=== PATIENT | male | born 1955 | race Caucasian/White ===

== ENCOUNTER 2025-03-19 12:15 | Observation (INO) ==
--- NOTE | 2025-03-19 12:29 | ED Physician Documentation ---
History of Present Illness Stated complaint Stated Complaint: BACK PX Chief complaint Chief Complaint: Abd Pain Additonal information Additional information: 69-year-old male with A-fib anticoagulated on Eliquis presents to emergency department via private vehicle after sustaining a mechanical ground-level fall. Patient states that on evening he lost his footing and fell onto his dog cage in his bedroom he has got right flank pain with bruising and states that the last couple nights that he has been having a hard time sleeping because of the severity of the pain. He is not having any hematuria no hematochezia no nausea or vomiting he denies hitting his head no loss of consciousness. Meds/Allgy Allergies Allergies Allergy/AdvReac Type Severity Reaction Status Date / Time No Known Drug Allergies Allergy Verified 03/19/25 12:22 PFSH Active Problems All Active Problems (Updated 03/19/25 @ 17:19 by Joann Bo DNP) Chronic anticoagulation (Acute) Chest wall hematoma (Acute) Blunt trauma to chest (Acute) Active bleeding (Acute) Acute blood loss anemia (Acute) Medical History Medical History (Updated 03/19/25 @ 17:19 by Joann Bo DNP) Atrial fibrillation Social History Social History Smoking Status: Smoker current status unk Do you feel safe in your home environment?: Yes History of physical, verbal, emotional, or financial abuse?: No Exam Exam Vital Signs: Vital Signs x48h Temp Pulse Resp BP Pulse Ox 03/19/25 16:19 77 18 156/79 H 97 03/19/25 12:20 36.5 C 91 18 111/84 99 Constitutional normal general appearance, no apparent distress, average body habitus, no limitations and alert [facility] normocephalic Eyes PERRL Chest inspection of chest normal Respiratory breath sounds equal bilaterally and normal respiratory effort Cardiovascular normal heart rate noted Gastrointestinal abdomen normal to inspection and abdomen soft to palpation Back/Pelvis right flank echymosis Extremities normal to inspection, normal to palpation and no tenderness Skin right flank echymosis measuring about 20cm in diameter Results Vitals Vitals: Vital Signs - 24 hr 03/19/25 12:20 03/19/25 12:42 03/19/25 12:43 Temperature 36.5 C Temperature Source Temporal Artery Scan Pulse Rate 91 Respiratory Rate 18 Blood Pressure 111/84 O2 Saturation 99 O2 Source Room air Pain Intensity 8 8 8 03/19/25 16:19 03/19/25 16:25 03/19/25 16:43 Temperature Temperature Source Pulse Rate 77 Respiratory Rate 18 Blood Pressure 156/79 H O2 Saturation 97 O2 Source Room air Pain Intensity 7 8 5 Oxygen O2 Source Room air Labs Labs: Laboratory Tests 03/19/25 03/19/25 12:59 16:11 WBC 9.5 RBC 3.39 L Hgb 10.3 L Hct 31.0 L MCV 91.4 MCH 30.4 MCHC 33.2 RDW 13.5 Plt Count 275 MPV 10.3 Neut # (Auto) 6.9 H Lymph # (Auto) 1.4 L Harmon # (Auto) 0.9 Eos # (Auto) 0.2 Baso # (Auto) 0.1 Absolute Nucleated RBC 0.00 Nucleated RBC % 0.0 PT 15.6 H INR 1.4 H Sodium 135 Potassium 4.0 Chloride 100 L Carbon Dioxide 28 Anion Gap 7.0 BUN 20 Creatinine 0.7 Estimated GFR (MDRD) 111 Glucose 215 H Calcium 9.3 Total Bilirubin 0.7 AST 11 ALT 12 Alkaline Phosphatase 69 Total Protein 6.8 Albumin 4.1 Globulin 2.7 Albumin/Globulin Ratio 1.5 Lipase 19 Rads (name of study) CT abdomen pelvis with contrast: Relevant Findings:: Final report received and EMP independent interpretation of test Interpretation: IMPRESSION: 1. Findings most suggestive of significant superficial as well as intramuscular hemorrhage in the right lower posterior chest wall extending in the right flank. 2. There are also signs of active intramuscular bleeding in the right lower posterior chest wall. This could be further assessed with follow-up multiphasic CTA of the chest. 3. No definite acute rib fracture. No acute intra-abdominal abnormality. CT angio chest with contrast: Relevant Findings:: Final report received and EMP independent interpretation of test Interpretation: IMPRESSION: Active extravasation of the right 10th intercostal artery with associated intramuscular hematoma. PD Medical Decision Making ED course Complexity details: reviewed results, d/w patient and d/w telecom sales consultant ([facility] Dr. Mejía) ED course: 69-year-old male presents to emergency department for right flank pain with bruising after mechanical ground-level fall that happened 2 days ago After tripping and falling on his dog crate. CT abdomen pelvis was complete for further evaluation of his right flank pain this revealed significant superficial and intramuscular hemorrhage into the right lower posterior chest wall and extending into the flank. Also signs of active intramuscular bleeding in the right lower posterior chest wall recommended to do a CTA of the chest CTA of the chest was complete and revealed active extravasation of the right 10th intercostal artery with associated intramuscular hematoma without a right 10th rib fracture. I spoke with Dr. Steele about these findings and he suggested reaching out to [facility] trauma team for consult and if they were comfortable keeping him here for observation. Reach out to [facility] and spoke with Dr. Mejía on the [facility] trauma team who reviewed the imaging himself he said that he could not significantly appreciate this extravasation but did feel comfortable with keeping patient here for observation overnight and repeating a chest x-ray and labs in the morning. Patient is anticoagulated on Eliquis I did suggest the possibility of reversing anticoagulation with Kcentra or FFP and Dr. Mejía did not feel that this was necessary at this point in time especially given the fact that his hemoglobin hematocrit are stable this happened 3 days ago. He hemoglobin is 10.3 and hematocrit is 31.0. PT is 15.6 and INR is 1.4 After reviewing the [facility] consult information to Dr. Steele he is agreeable to keep patient under surgical services for repeat chest x-ray and lab monitoring in the hospital. Patient is agreeable to stay. He was given oxycodone originally for his pain but pain did seem to return so we gave him some IV Dilaudid and he said this significantly alleviated his pain to the point where if like he could actually get some rest for the first time. Discharge Plan Discharge Patient Disposition: [facility] DC/Xfer Condition: Good Clinical Impression: Active bleeding, Blunt trauma to chest, Chronic anticoagulation, Chest wall hematoma
[2025-03-19] MEDS: oxyCODONE 5 MG TABLET PO STA (12:42)
[2025-03-19] MEDS: ACETAMINOPHEN 325 MG TABLET PO STA (12:43)
[2025-03-19 13:07] LABS: HCT - HEMATOCRIT 31.0 % (42.0-52.0); HGB - HEMOGLOBIN 10.3 g/dL (14.0-18.0); MEAN PLATELET VOLUME 10.3 fL (7.4-11.4); NRBC ABSOLUTE COUNT (AUTO) 0.00 x10^3/uL; NUCLEATED RED BLOOD CELLS AUTO 0.0 /100WBC; PLT - PLATELET COUNT 275 10^3/uL (130-450); RED CELL DISTRIBUTION WIDTH 13.5 % (12.0-15.0)
[2025-03-19 13:25] LABS: ALT ALANINE AMINOTRANSFERASE 12.0 IU/L (10-60); AST ASPARTATE AMINOTRANSFERASE 11.0 IU/L (10-42); BUN - BLOOD UREA NITROGEN 20.0 mg/dL (6-20); CARBON DIOXIDE - CO2 28.0 mmol/L (21-32); CREATININE 0.7 mg/dL (0.6-1.3); GFR - MDRD 111.0 (>89)
--- NOTE | 2025-03-19 14:12 | CT Report ---
EXAM: CT Abdomen/Pelvis W DATE: 03/19/2025 1:30 PM PDT INDICATION: 69 years Male with right flank pain, right rib pain, fall on object TECHNIQUE: Using MDCT technique, axial images were obtained through the abdomen and pelvis, from the bases of the lungs through the pubic symphysis, following the intravenous administration of contrast. Sagittal and coronal MPR reconstructions were performed. Scan was performed in compliance with NEMA XR 29-213 Dose Limiting Standard. In accordance with CT protocol optimization, one or more of the following dose reduction techniques were utilized for this exam: automated exposure control, adjustment of mA and/or KV based on patient size, or use of iterative reconstructive technique. PROTOCOL: Routine LIMITATION: None. CONTRAST: 80 cc Omnipaque 300 COMPARISON: None available. FINDINGS: Lung bases and visualized mediastinum: No significant focal lesion seen. Liver: No significant focal lesion seen. Spleen: No significant focal lesion seen. Pancreas: No significant focal lesion seen. Gallbladder and bile ducts: No biliary dilatation or significant focal lesion seen. Adrenal glands: No significant focal lesion seen. Kidneys and ureters: No calculi, hydronephrosis, or suspicious focal lesions are seen. GI tract, mesentery, and peritoneum: No significant lesion seen. Upper abdomen and retroperitoneal spaces: No significant adenopathy or other mass seen. Vascular structures: The abdominal aorta, major visceral branches and iliac arteries are normal in caliber. Urinary bladder: No significant focal lesion seen. Reproductive organs: The prostate and seminal vesicles are unremarkable. Inguinal regions and abdominal wall: There is probable mesh in the anterior abdominal wall. No hernia seen. There is extensive superficial fat stranding as well as asymmetric thickening of the muscular structures in the right lower posterior chest wall extending into the right flank. Linear areas of contrast density seen in the right lower chest muscular structures. Osseous structures: No significant focal lesion seen. IMPRESSION: 1. Findings most suggestive of significant superficial as well as intramuscular hemorrhage in the right lower posterior chest wall extending in the right flank. 2. There are also signs of active intramuscular bleeding in the right lower posterior chest wall. This could be further assessed with follow-up multiphasic CTA of the chest. 3. No definite acute rib fracture. No acute intra-abdominal abnormality. Reviewed by: Adalid Douglas MD on 03/19/2025 2:10 PM PDT Approved by: Adalid Douglas MD on 03/19/2025 2:10 PM PDT Station ID: [id number]
--- NOTE | 2025-03-19 15:42 | CT Report ---
PROCEDURE: CT Angio Chest INDICATIONS: right flank pain with active bleeding CONTRAST: OMNI 300 100mL TECHNIQUE: Before and after the administration of intravenous contrast, 2 mm axial images were acquired from the pulmonary apices to the posterior costophrenic angles during the arterial phase. In addition, 1 mm lung kernel and 5 mm soft tissue kernel reconstructions were performed. 3-dimensional coronal oblique maximum intensity projection (MIP) reformats, 8 mm axial MIP, and 5 mm coronal and sagittal MPR reformats were then performed through the thorax. For radiation dose reduction, the following was used: automated exposure control, adjustment of mA and/or kV according to patient size. COMPARISON: None. FINDINGS: Image quality: Excellent. Large vessels: No filling defects within the opacified pulmonary arteries, accounting for motion and contrast timing. No evidence of acute aortic syndrome or aortic aneurysm. Lungs and pleura: No consolidation. No pleural effusions. No pneumothorax. No suspicious pulmonary nodules which require follow up. Mediastinum: Heart size is normal. No pericardial effusion. No large vessel abnormality. No mediastinal adenopathy by size criteria. Chest wall and lower neck: Again seen is a right posterior chest wall intramuscular hematoma which demonstrates focal areas of active extravasation seen best on the portal venous phase images but also identifiable on the arterial phase images. These are likely arising from the right 10th intercostal artery. No other area of active extravasation is identified. Thyroid is unremarkable. No axillary or supraclavicular adenopathy by size. Bones: No aggressive osseous abnormality. No acute rib fracture. Upper Abdomen: Unremarkable. IMPRESSION: Active extravasation of the right 10th intercostal artery with associated intramuscular hematoma. Reviewed by: Marissa Pendleton MD on 03/19/2025 2:41 PM AKDT Approved by: Marissa Pendleton MD on 03/19/2025 2:41 PM AKDT Station ID: [id number]
[2025-03-19 16:20] LABS: INR 1.4 (0.8-1.2); PT - PROTHROMBIN TIME 15.6 secs (9.9-12.6)
[2025-03-19] MEDS: HYDROmorphone 0.5 MG/0.5 ML SYRINGE IVP STA (16:25)
--- NOTE | 2025-03-19 17:27 | HISTORY & PHYSICAL EXAMINATION ---
Chief Complaint Chief Complaint Chief Complaint: Right side chest swelling and discoloration History of Present Illness Admitted From Admitted From:: ED History Obtained From History obtained from: Patient Exam Limitations: None History of Present Illness HPI Comment/Other: Devon is a 69 year old male who tripped while walking in the dark and fell onto a small animal pet cage striking his right posterolateral chest wall 3 days ago. He had minimal discomfort and no SOB but developed bruising in the back over the next 24 hours. This persisted and extended over the next several days and when he showed his friends, they advised that he be evaluated in the ED. He denies chest wall discomfort with breathing, light-headedness, nausea, or vomiting. Devon takes Eliquis daily for atrial fibrillation. In the ED he was found to be hemodynamically stable with a Hgb of 10.3. CT of the chest and abdomen were normal except for evidence of a right postero-lateral chest wall soft tissue hematoma. There is no evidence of a rib fracture but there is a suggestion of an active blush from the artery associated with the 10th rib. The ED contacted the trauma staff at [facility] to determine if he was a candidate for IR embolization. They were not certain that there was strong enough image evidence of an active bleed to warrant transfer therefore I was contacted and recommended that he be admitted to this facility to monitor his H&H, stop his DOAC, and offer blood transfusion if needed. Meds/Allgy Home Medications Ambulatory Orders Medication Instructions Recorded Confirmed albuterol sulfate 90 mcg/actuation 2 inh inhalation Q8 H PRN shortness 03/19/25 03/19/25 aerosol inhaler of breath or wheezing allopurinol 100 mg tablet 200 mg PO DAILY Gout 5 03/19/25 amlodipine 10 mg tablet 10 mg PO DAILY 03/19/2502/20 apixaban 5 mg tablet (Eliquis) 5 mg PO BID 03/19/25 empagliflozin 10 mg tablet 10 mg PO DAILY 03/19/25 (Jardiance) furosemide 20 mg tablet 10 mg PO DAILY 03/19/2502/20 metformin 500 mg tablet,extended 1,000 mg PO BID 03/1903/19/25 release 24 hr metoprolol succinate 100 mg 100 mg PO DAILY 03/19/25 0 03/19/25 tablet,extended release 24 hr rosuvastatin 5 mg tablet 5 mg PO HS 03/19/25 03/19/25 Allergies Allergies Allergy/AdvReac Type Severity Reaction Status Date / Time No Known Drug Allergies Allergy Verified 03/19/25 12:22 PFSH Active Problems All Active Problems Chronic anticoagulation (Acute) Chest wall hematoma (Acute) Blunt trauma to chest (Acute) Active bleeding (Acute) Acute blood loss anemia (Acute) Medical History Medical History Diabetes Atrial fibrillation Social History Social History Smoking Status: Smoker current status unk Do you feel safe in your home environment?: Yes History of physical, verbal, emotional, or financial abuse?: No POLST Patient has POLST: No Review of Systems Mild right side posterior chest discomfort with palpation associated with bruising. Denies SOB, anterior chest pain, abdominal pain. Prior Level of Functionality: Independent Exam Exam Vital Signs: Vital Signs x48h Temp Pulse Resp BP BP Pulse Ox 03/19/25 18:11 36.6 C 16 130/79 99 03/19/25 16:19 77 18 156/79 H 97 03/19/25 12:20 36.5 C 91 18 111/84 99 Constitutional normal general appearance, no apparent distress and average body habitus HENMT normocephalic, head/scalp atraumatic, hearing grossly normal bilaterally, oral mucous membranes normal and oropharynx normal Eyes PERRL, EOMs intact bilaterally, conjunctivae normal and no scleral icterus Neck/C-Spine visual inspection normal, trachea midline and cervical spine nontender Lymph no lymphadenopathy noted Chest Ecchymosis of the right posterio-lateral chest wall. No rib tenderness. No pulsatile mass. No skin lacerations or punctures. Respiratory breath sounds equal bilaterally, normal respiratory effort, clear to auscultation bilaterally and no wheezes Cardiovascular normal heart rate noted, no murmur and peripheral pulses 2+ throughout Gastrointestinal abdomen soft to palpation, nontender to palpation, nondistended and normoactive bowel sounds Multiple surgical scars Back/Pelvis spine normal to inspection Extremities normal to inspection Neurology no movement abnormality noted and no focal motor deficit noted Psychiatry mental status grossly normal, thought process normal, cooperative and affect normal Skin skin color normal and skin turgor normal Image Body (4 view): 2 1. Ecchymosis Conclusion/Plan Problem List (1) Blunt trauma to chest: (2) Active bleeding: (3) Acute blood loss anemia: (4) Chest wall hematoma: (5) Chronic anticoagulation: Plan 1) Admit to observation status 2) Stop Eliquis 3) Sliding scale insulin coverage 4) Serial H&H 5) Transfuse as indicated Lab Results 03/19/25 17:35 03/19/25 12:59
[2025-03-19] MEDS: LACTATED RINGERS 1,000 ML IV SCH (17:29)
[2025-03-19 17:39] LABS: HCT - HEMATOCRIT 28.1 % (42.0-52.0); HGB - HEMOGLOBIN 9.3 g/dL (14.0-18.0)
[2025-03-19] MEDS ORDERED: SODIUM CHLORIDE FLUSH 0.9% 10 ML SYRINGE IVP PRN (18:01)
[2025-03-19] MEDS ORDERED: ALBUTEROL NEB 2.5 MG/3 ML INH PRN (19:10)
[2025-03-19] MEDS: HYDROmorphone 1 MG/ML CARPUJECT IVP PRN (19:25)
[2025-03-19] MEDS: ACETAMINOPHEN 325 MG TABLET PO SCH (19:26)
[2025-03-19] MEDS: ATORVASTATIN 10 MG TABLET PO SCH (22:50)
[2025-03-19] MEDS: INSULIN LISPRO 300 UNIT/3 ML PEN SUBQ SCH (22:51)
[2025-03-20] MEDS: SODIUM CHLORIDE FLUSH 0.9% 10 ML SYRINGE IVP SCH (00:31)
[2025-03-20 00:42] LABS: HCT - HEMATOCRIT 28.2 % (42.0-52.0); HGB - HEMOGLOBIN 9.2 g/dL (14.0-18.0)
[2025-03-20 05:31] LABS: HCT - HEMATOCRIT 27.0 % (42.0-52.0); HGB - HEMOGLOBIN 9.0 g/dL (14.0-18.0)
--- NOTE | 2025-03-20 08:03 | PROVIDER PROGRESS NOTE ---
Progress Note Progress Note Progress Note: General Surgery Progress Note Hospital Day # 2 - Flank hematoma due to GLF; Acute blood loss anem1a Code Status: Full ASSESSMENT: 1) Acute blood loss anemia associated with pre-existing cardiac disease and on a DOAC. I recommend transfusion of a single unit of PRBC prior to discharge as his initial CTA was suspicious for an active bleed 3 days after the fall and his Hgb is now at 9 and Hct is at 27. I do not think he is actively bleeding at this time but rather has sustained a significant enough of a blood loss to place him at risk for CVA or MS given his prior cardiac history. 2) Blunt chest trauma with flank/back hematoma - Stable; No clinical evidence of an active bleed 3) Diabetes - managed with Metformin/Carb controlled diet 4) Atrial fibrillation - will resume DOAC in 2-3 days 5) Sleep apnea - CPAP at night PLAN: 1) Transfuse 1 unit of PRBC; H&H after completion of the transfusion; Discharge to home after the H&H if it remains elevated. 2) May restart Eliquis Friday 3) Discharge to home after noon meal 4) FU PCP or Surgery Clinic if there are questions or concerns regarding the right flank hematoma/ecchymosis 5) Will check CXR prior to discharge <><><><><> PERTINENT INTERVAL ISSUES: None S: Slept well; Minimal flank discomfort; OBJECTIVE: VS: BP 135/82; P 70; RR 17; T 36 EXAMINATION: MENTAL STATUS: AAO; Comfortable Right Back/Flank - Ecchymosis unchanged. No palpable hematoma; Minimal discomfort with palpation LABS: H&H 9.0/27; PLT 275K; Glu 125 CULTURES: CXR pending IMAGING: None pending ANTIMICROBIALS: N/A PAIN CONTROL: Acetaminophen VTEP: Chemical: None Mechanical: SCD Ken Parker MD, FACS General Surgery Service
[2025-03-20] MEDS: METOPROLOL SUCCINATE 50 MG TABLET PO SCH (08:48)
[2025-03-20] MEDS: FUROSEMIDE 20 MG TABLET PO SCH (08:49)
--- NOTE | 2025-03-20 09:37 | XRAY Report ---
PROCEDURE: XR Chest 2V INDICATIONS: Blunt chest trauma ? pleural blood TECHNIQUE: 2 views of the chest were acquired. COMPARISON: None. FINDINGS: Surgical changes and devices: None. Lungs and pleura: No pleural effusions or pneumothorax. No consolidation. Mediastinum: Mediastinal contours appear normal. Heart size is normal. Bones and chest wall: No suspicious bony lesions. There is prominence of the soft tissues posterior to the ribs concurrent with the known intramural hematoma.. IMPRESSION: No acute cardiopulmonary process. Specifically, no evidence of hemothorax. Reviewed by: Marissa Pendleton MD on 03/20/2025 8:35 AM BEN Approved by: Marissa Pendleton MD on 03/20/2025 8:35 AM BEN Station ID: [id number]
--- NOTE | 2025-03-20 09:43 | PHARMACY PROGRESS NOTE ---
Best Possible Medication History Admit Date and Time: 03/19/25 1715 Home Medications Medication Instructions Recorded Confirmed Type albuterol sulfate 90 mcg/actuation 2 inh inhalation Q8 H PRN shortness 03/19/25 03/19/25 History aerosol inhaler of breath or wheezing allopurinol 100 mg tablet 200 mg PO DAILY Gout 5 03/19/25 History amlodipine 10 mg tablet 10 mg PO DAILY 03/19/2502/20 History apixaban 5 mg tablet (Eliquis) 5 mg PO BID 03/19/25 History Held on 03/20/25. Instructions: Resume on 03/22/25. Start taking Eliquis on Saturday, March 22, 2025 empagliflozin 10 mg tablet 10 mg PO DAILY 03/19/25 History (Jardiance) furosemide 20 mg tablet 10 mg PO DAILY 03/19/2502/20 History metformin 500 mg tablet,extended 1,000 mg PO BID 03/1903/19/25 History release 24 hr metoprolol succinate 100 mg 100 mg PO DAILY 03/19/25 0 03/19/25 History tablet,extended release 24 hr rosuvastatin 5 mg tablet 5 mg PO HS 03/19/25 03/19/25 History acetaminophen 325 mg tablet 650 mg (2 x 325 mg) PO Q6H #60 tabs 03/20/25 Rx lisinopril 40 mg tablet 40 mg PO DAILY 03/20/2502/20 History Processed by: Nursing Medications reviewed in ED?: Yes Medication History completed: Yes Patient Interview: Completed Secondary Source(s): Pharmacy records and Insurance records [facility] Statement: As the person ultimately responsible for medication therapy, providers are able to order a medication from an existing home medication list in [facility] via the "Reconcile Routine" prior to Confirmation of that medication by director decision support. Such practice is discouraged except when the physician, in their clinical judgment, deems that a medical need exists for a medication without regard to previous use.
[2025-03-20 12:09] LABS: ESTIMATED AVERAGE GLUCOSE 169 mg/dL (70-100); HEMOGLOBIN A1c% 7.5 % (4.27-6.07)
[2025-03-20] MEDS: HYDROmorphone 0.5 MG/0.5 ML SYRINGE IVP PRN (12:16)
[2025-03-20 12:43] LABS: HCT - HEMATOCRIT 31.1 % (42.0-52.0); HGB - HEMOGLOBIN 10.3 g/dL (14.0-18.0)
[2025-03-20 14:08] VITALS: TEMP 97.9
[2025-03-20 15:28] VITALS: BP 128/69; O2SAT 98
== END 2025-03-20 15:15 | disposition home or self-care (01) ==
LOC: MS3 12:15 → ED 12:15 → MS3 17:59
PROVIDERS: ADMIT Surgery; ATTEND Surgery